=== PATIENT | male | born 1970 | race Two or more races ===

== ENCOUNTER 2018-01-01 08:55 | Outpatient (CLI) | payer OTHER | END 2018-01-01 09:07 | disposition home or self-care (01) | LOC: NUCLEAR 08:55 | DX: C64.1 Malignant neoplasm of right kidney, except renal pelvis (principal) | CPT/HCPCS: 78306; A9503 ==

== ENCOUNTER 2020-05-05 12:29 | Outpatient (CLI) | payer OTHER | END 2020-05-05 12:45 | disposition home or self-care (01) | LOC: RAD 12:29 | PROVIDERS: ATTEND Internal Medicine | DX: R10.84 Generalized abdominal pain (principal); C64.1 Malignant neoplasm of right kidney, except renal pelvis ==

== ENCOUNTER 2020-05-20 08:56 | Outpatient (CLI) | payer OTHER | END 2020-05-20 08:57 | disposition home or self-care (01) | LOC: NUCLEAR 08:56 | PROVIDERS: ATTEND Urology | DX: C64.1 Malignant neoplasm of right kidney, except renal pelvis (principal) | CPT/HCPCS: 78306; A9503 ==